=== PATIENT | male | born 1975 | race African-American/Black ===

== ENCOUNTER 2020-07-10 17:27 | Emergency (ER) | payer OTHER ==
[2020-07-10 17:50] VITALS: BP 138/78; PULSE 100; TEMP 100.1; BMI 33.7
[2020-07-10] MEDS ORDERED: ACETAMINOPHEN 500 MG TABLET (FP) PO ONE (18:15)
[2020-07-10] MEDS ORDERED: ACETAMINOPHEN 500 MG TABLET (FP) ONE (18:22)
== END 2020-07-10 18:43 | disposition home or self-care (01) ==
LOC: JER 17:27
DX: J06.9 Acute upper respiratory infection, unspecified (principal); Z11.52 Encounter for screening for COVID-19
CPT/HCPCS: 99283-25; C9803; U0003; U0005

== ENCOUNTER 2022-07-16 04:39 | Emergency (ER) | payer OTHER ==
[2022-07-16 04:45] VITALS: BP 154/89; PULSE 83; RESP 17; TEMP 97.6; BMI 35.2
[2022-07-16] MEDS ORDERED: ACETAMINOPHEN 325 MG TABLET (FP) PO ONE (05:09)
[2022-07-16] MEDS ORDERED: KETOROLAC TROMETHAMINE 30 MG/1 ML VIAL IM ONE (05:09)
[2022-07-16] MEDS ORDERED: LIDOCAINE 5% TOPICAL PATCH TP ONE (05:09)
[2022-07-16] MEDS ORDERED: ACETAMINOPHEN 325 MG TABLET (FP) ONE (05:21)
[2022-07-16] MEDS ORDERED: LIDOCAINE 5% TOPICAL PATCH ONE (05:21)
[2022-07-16] MEDS ORDERED: KETOROLAC TROMETHAMINE 30 MG/1 ML VIAL ONE (05:21)
[2022-07-16] MEDS ORDERED: LIDOCAINE PATCH REMOVAL MC SCH (22:00)
== END 2022-07-16 05:28 | disposition home or self-care (01) ==
LOC: JER 04:39
PROC: 3E0233Z Introduction of Anti-inflammatory into Muscle, Percutaneous Approach (ICD-10-PCS; principal; 2022-07-16)
DX: M25.511 Pain in right shoulder (principal); S43.401A Unspecified sprain of right shoulder joint, initial encounter; X58.XXXA Exposure to other specified factors, initial encounter; Y99.0 Civilian activity done for income or pay
CPT/HCPCS: 96372; 99284-25